=== PATIENT | female | born 1985 | race Caucasian/White ===

== ENCOUNTER 2023-12-21 10:27 | Emergency (ER) | payer MEDICAID ==
[~2023-12-21] VITALS: Ht 162.6 cm; Wt 55.0 kg
[2023-12-21 10:34] VITALS: TEMP 97.9; O2SAT 99
[2023-12-21 12:11] VITALS: BP 134/82; PULSE 113; RESP 18
[2023-12-21] MEDS: KETOROLAC 30MG/ML VIAL IM ONE (12:11)
[2023-12-21] MEDS: CEFAZOLIN SODIUM 1000MG/VIAL IM ONE (12:11)
[2023-12-21] MEDS: ONDANSETRON 4MG ODT PO ONE (12:12)
[2023-12-21] MEDS ORDERED: IBUP-2029 MT (12:12)
[2023-12-21] MEDS ORDERED: AMOX-494 MT (12:12)
[2023-12-21] MEDS ORDERED: CHLO473M2 MT (12:12)
== END 2023-12-21 13:02 | disposition home or self-care (01) ==
LOC: ER 10:40
DX: K04.7 Periapical abscess without sinus (principal); Z71.6 Tobacco abuse counseling
CPT/HCPCS: 96372; 99284; 99406; Q0162; J0690; J1885; Z7610